=== PATIENT | female | born 1975 | race Caucasian/White ===

== ENCOUNTER 2019-07-23 10:29 | Outpatient (CLI) | payer BC | END 2019-07-23 10:30 | disposition home or self-care (01) | LOC: COV 10:29 | PROVIDERS: ATTEND Family Medicine | DX: R05 Cough (principal); R50.9 Fever, unspecified | CPT/HCPCS: 81599 ==

== ENCOUNTER 2021-10-24 08:00 | Outpatient (CLI) | payer BC | END 2021-10-24 23:59 | disposition home or self-care (01) | LOC: LAB.S 08:00 | PROVIDERS: ATTEND Registered Nurse | DX: R07.0 Pain in throat (principal) | CPT/HCPCS: 87070 ==